=== PATIENT | female | born 2000 | race Caucasian/White ===

== ENCOUNTER 2021-11-26 21:29 | Emergency (ER) | payer BC ==
[2021-11-26] MEDS ORDERED: KETOROLAC 15 MG/ML 1 ML VIAL IVP STA (22:10)
[2021-11-26] MEDS ORDERED: ONDANSETRON 4 MG/2 ML VIAL IVP STA (22:11)
--- NOTE | 2021-11-26 22:13 | ED ---
Abdominal Pain HPI - General Stated Complaint: pain on right side, vomitting Time Seen by Provider: 11/26/21 21:50 - History of Present Illness Initial Comments: This patient is 21-year-old who presents with complaint of right flank pain starting around 8 PM while at rest. Patient also developed associated nausea and vomiting. There has been some urinary frequency though urinating very little. Patient has not noticed any hematuria. No dysuria. No change in bowel movements. MD Complaint: flank pain Onset/Timin -: hour(s) Location: R flank Radiation: RLQ Migration to: no migration Severity: moderate Quality: aching, sharp Consistency: colicky Improves With: nothing Worsens With: nothing Associated Symptoms: vomiting - Related Data Home Medications Medication Instructions Recorded Confirmed Naproxen [Naprosyn] 250 mg PO DIRECTED PRN 01/18/15 01/18/15 Nitrofurantoin Monohyd/M-Cryst 100 mg PO BID 01/18/15 01/18/15 [Macrobid] Previous Rx's Medication Instructions Recorded Ondansetron Odt [Zofran ODT] 4 mg PO Q8HR PRN #10 tab 11/26/21 Tamsulosin [Flomax] 0.4 mg PO DAILY #14 cap 11/26/21 Allergies Allergy/AdvReac Type Severity Reaction Status Date / Time No Known Allergies Allergy Verified 11/26/21 22:16 Review of Systems ROS Statement: Those systems with pertinent positive or pertinent negative responses have been documented in the HPI. ROS Other: All systems not noted in ROS Statement are negative. Constitutional: Denies: fever, chills Respiratory: Denies: cough, dyspnea Cardiovascular: Denies: chest pain, palpitations Gastrointestinal: Reports: abdominal pain, nausea, vomiting. Denies: diarrhea, melena, hematochezia Genitourinary: Reports: frequency. Denies: dysuria, hematuria Musculoskeletal: Denies: back pain Skin: Denies: rash Neurological: Denies: headache, weakness Past Medical History Past Medical History: No Reported History History of Any Multi-Drug Resistant Organisms: None Reported Past Surgical History: No Surgical Hx Reported Past Psychological History: No Psychological Hx Reported Past Alcohol Use History: None Reported Past Drug Use History: None Reported General Exam General appearance: alert, in no apparent distress Head exam: Present: atraumatic, normocephalic Eye exam: Present: normal appearance. Absent: scleral icterus, conjunctival injection Neck exam: Present: normal inspection Respiratory exam: Present: normal lung sounds bilaterally. Absent: respiratory distress, wheezes, rales, rhonchi, stridor Cardiovascular Exam: Present: regular rate, normal rhythm, normal heart sounds. Absent: systolic murmur, diastolic murmur, rubs, gallop GI/Abdominal exam: Present: soft. Absent: distended, tenderness, guarding, rebound, rigid, mass Extremities exam: Present: normal inspection, normal capillary refill. Absent: pedal edema, calf tenderness Back exam: Present: normal inspection. Absent: CVA tenderness (R), CVA tenderness (L) Neurological exam: Present: alert Skin exam: Present: warm, dry, intact, normal color. Absent: rash Course Vital Signs 11/26/21 11/26/21 22:10 23:40 Temperature 98.2 F 98.1 F Pulse Rate 87 75 Respiratory 18 16 Rate Blood Pressure 112/76 108/67 O2 Sat by Pulse 99 100 Oximetry Medical Decision Making - Lab Data Result diagrams: 11/26/21 22:29 11/26/21 22:29 Lab Results 11/26/21 11/26/21 11/26/21 Range/Units 22:29 22:29 22:29 WBC 12.9 H (3.8-10.6) k/uL RBC 5.10 (3.80-5.40) m/uL Hgb 15.4 (11.4-16.0) gm/dL Hct 43.5 (34.0-46.0) % MCV 85.2 (80.0-100.0) fL MCH 30.2 (25.0-35.0) pg MCHC 35.4 (31.0-37.0) g/dL RDW 11.9 (11.5-15.5) % Plt Count 325 (150-450) k/uL MPV 7.5 Neutrophils % 77 % Lymphocytes % 18 % Monocytes % 3 % Eosinophils % 1 % Basophils % 0 % Neutrophils # 9.9 H (1.3-7.7) k/uL Lymphocytes # 2.3 (1.0-4.8) k/uL Monocytes # 0.4 (0-1.0) k/uL Eosinophils # 0.1 (0-0.7) k/uL Basophils # 0.1 (0-0.2) k/uL Sodium (137-145) mmol/L Potassium (3.5-5.1) mmol/L Chloride (98-107) mmol/L Carbon Dioxide (22-30) mmol/L Anion Gap mmol/L BUN (7-17) mg/dL Creatinine (0.52-1.04) mg/dL Est GFR (CKD-EPI)AfAm (>60 ml/min/1.73 sqM) Est GFR (CKD-EPI)NonAf (>60 ml/min/1.73 sqM) Glucose (74-99) mg/dL Calcium (8.4-10.2) mg/dL Total Bilirubin (0.2-1.3) mg/dL AST (14-36) U/L ALT (4-34) U/L Alkaline Phosphatase (38-126) U/L Total Protein (6.3-8.2) g/dL Albumin (3.5-5.0) g/dL Urine Color Yellow Urine Appearance Turbid H (Clear) Urine pH 5.5 (5.0-8.0) Ur Specific Lincoln 1.022 (1.001-1.035) Urine Protein 1+ H (Negative) Urine Glucose (UA) Negative (Negative) Urine Ketones Negative (Negative) Urine Blood Large H (Negative) Urine Nitrite Negative (Negative) Urine Bilirubin Negative (Negative) Urine Urobilinogen <2.0 (<2.0) mg/dL Ur Leukocyte Esterase Moderate H (Negative) Urine RBC 176 H (0-5) /hpf Urine WBC 14 H (0-5) /hpf Ur Squamous Epith Cells 10 H (0-4) /hpf Urine Bacteria Occasional H (None) /hpf Hyaline Casts 1 (0-2) /lpf Urine Mucus Few H (None) /hpf Urine HCG, Qual Not Detected (Not Detectd) 11/26/21 Range/Units 22:29 WBC (3.8-10.6) k/uL RBC (3.80-5.40) m/uL Hgb (11.4-16.0) gm/dL Hct (34.0-46.0) % MCV (80.0-100.0) fL MCH (25.0-35.0) pg MCHC (31.0-37.0) g/dL RDW (11.5-15.5) % Plt Count (150-450) k/uL MPV Neutrophils % % Lymphocytes % % Monocytes % % Eosinophils % % Basophils % % Neutrophils # (1.3-7.7) k/uL Lymphocytes # (1.0-4.8) k/uL Monocytes # (0-1.0) k/uL Eosinophils # (0-0.7) k/uL Basophils # (0-0.2) k/uL Sodium 139 (137-145) mmol/L Potassium 3.6 (3.5-5.1) mmol/L Chloride 103 (98-107) mmol/L Carbon Dioxide 22 (22-30) mmol/L Anion Gap 14 mmol/L BUN 11 (7-17) mg/dL Creatinine 0.75 (0.52-1.04) mg/dL Est GFR (CKD-EPI)AfAm >90 (>60 ml/min/1.73 sqM) Est GFR (CKD-EPI)NonAf >90 (>60 ml/min/1.73 sqM) Glucose 108 H (74-99) mg/dL Calcium 9.4 (8.4-10.2) mg/dL Total Bilirubin 0.3 (0.2-1.3) mg/dL AST 22 (14-36) U/L ALT 17 (4-34) U/L Alkaline Phosphatase 79 (38-126) U/L Total Protein 7.3 (6.3-8.2) g/dL Albumin 4.6 (3.5-5.0) g/dL Urine Color Urine Appearance (Clear) Urine pH (5.0-8.0) Ur Specific Lincoln (1.001-1.035) Urine Protein (Negative) Urine Glucose (UA) (Negative) Urine Ketones (Negative) Urine Blood (Negative) Urine Nitrite (Negative) Urine Bilirubin (Negative) Urine Urobilinogen (<2.0) mg/dL Ur Leukocyte Esterase (Negative) Urine RBC (0-5) /hpf Urine WBC (0-5) /hpf Ur Squamous Epith Cells (0-4) /hpf Urine Bacteria (None) /hpf Hyaline Casts (0-2) /lpf Urine Mucus (None) /hpf Urine HCG, Qual (Not Detectd) Disposition Clinical Impression: Calculus of kidney Disposition: HOME SELF-CARE Condition: Good Instructions (If sedation given, give patient instructions): Kidney Stones (ED) Prescriptions: Tamsulosin [Flomax] 0.4 mg PO DAILY #14 cap Ondansetron Odt [Zofran ODT] 4 mg PO Q8HR PRN #10 tab PRN Reason: Nausea Is patient prescribed a controlled substance at d/c from ED?: No Referrals: None,Stated [REFERRING] - 1-2 days Lawson Hsu MD [STAFF PHYSICIAN] - 1-2 days
[2021-11-26 22:39] LABS: Basophils # (A) 0.1 k/uL (0-0.2); Basophils % (A) 0 %; Eosinophils # (A) 0.1 k/uL (0-0.7); Eosinophils % (A) 1 %; HCT 43.5 % (34.0-46.0); HGB 15.4 gm/dL (11.4-16.0); Lymphocytes # (A) 2.3 k/uL (1.0-4.8); Lymphocytes % (A) 18 %; MCH 30.2 pg (25.0-35.0); MCHC 35.4 g/dL (31.0-37.0); MCV 85.2 fL (80.0-100.0); Mean Platelet Volume 7.5; Monocytes # (A) 0.4 k/uL (0-1.0); Monocytes % (A) 3 %; Neutrophils # (A) 9.9 k/uL (1.3-7.7); Neutrophils % (A) 77 %; Platelet Count 325 k/uL (150-450); RDW 11.9 % (11.5-15.5); WBC 12.9 k/uL (3.8-10.6)
[2021-11-26 22:49] LABS: Appearance,Urine Turbid (Clear); Bacteria,Urine Occasional /hpf; Bilirubin,Urine Negative (Negative); Blood,Urine Large (Negative); Color,Urine Yellow; Glucose,Urine (UA) Negative (Negative); Hyaline Casts,Urine 1 /lpf (0-2); Ketones,Urine Negative (Negative); Leukocyte Esterase,Urine Moderate (Negative); Mucus,Urine Few /hpf; Nitrite,Urine Negative (Negative); PH, Urine 5.5 (5.0-8.0); Protein,Urine 1+ (Negative); RBC,Urine 176 /hpf (0-5); Specific Gravity,Urine 1.022 (1.001-1.035); Squamous Epithelial Cell,Urine 10 /hpf (0-4); Urobilinogen,Urine <2.0 mg/dL (<2.0); WBC,Urine 14 /hpf (0-5)
[2021-11-26 23:20] LABS: ALT 17 U/L (4-34); AST 22 U/L (14-36); African American GFR (CKD) >90 (>60 ml/min/1.73 sqM); Albumin 4.6 g/dL (3.5-5.0); Alkaline Phosphatase 79 U/L (38-126); Anion Gap 14 mmol/L; Blood Urea Nitrogen 11 mg/dL (7-17); Calcium 9.4 mg/dL (8.4-10.2); Carbon Dioxide 22 mmol/L (22-30); Chloride 103 mmol/L (98-107); Glucose 108 mg/dL (74-99); Non-African American GFR(CKD) >90 (>60 ml/min/1.73 sqM); Potassium 3.6 mmol/L (3.5-5.1); Sodium 139 mmol/L (137-145); Total Bilirubin 0.3 mg/dL (0.2-1.3); Total Protein 7.3 g/dL (6.3-8.2)
--- NOTE | 2021-11-26 23:24 | US ---
EXAMINATION TYPE: US kidneys/renal and bladder DATE OF EXAM: 11/26/2021 COMPARISON: NONE CLINICAL HISTORY: suspect R kidney stone. Right flank pain and vomiting today EXAM MEASUREMENTS: Right Kidney: 10.8 x 4.1 x 4.2 cm Left Kidney: 10.2 x 4.3 x 5.6 cm Right Kidney: Mild hydronephrosis visualized. Echogenic foci with twinkle artifact seen in mid pole m easuring 0.5 x 0.6 x 0.4cm Left Kidney: No hydronephrosis or masses seen Bladder: Bladder empty Bilateral Jets seen: No IMPRESSION: There is right-sided hydronephrosis. There is likely calculus in the interpolar right kidney. Left ki dney appears normal with no sign of obstruction. No evidence of a renal mass. Urinary bladder was emp ty during the exam.
[2021-11-26] MEDS ORDERED: TAMSULOSIN 0.4 MG CAP.ER.24H PO STA (23:35)
[2021-11-26 23:42] VITALS: BP 108/67; PULSE 75; RESP 16; TEMP 98.1
== END 2021-11-27 | disposition home or self-care (01) ==
LOC: EC 21:29
DX: N20.0 Calculus of kidney (principal)
CPT/HCPCS: 36415; 80053; 85025; 81001; 81025; 76770; 96374; 96375; 99284; J2405; J1885

== ENCOUNTER 2021-12-31 06:19 | Day surgery (SDC) | payer BC ==
[2021-12-26 14:51] VITALS: BMI 29.2
[~2021-12-31 06:19] MED LIST: DEXAMETHASONE SOD PHOSPHATE 4 MG/ML 1 ML VIAL IV ONE; DEXAMETHASONE SOD PHOSPHATE 4 MG/ML 1 ML VIAL IV PRN; FAMOTIDINE 20 MG/2 ML VIAL IV PRN; LACTATED RINGERS 1,000 ML IV SCH; LIDOCAINE 1% (10MG/ML) FOR IV START INTRADERMA PRN; ONDANSETRON 4 MG/2 ML VIAL IVP ONE; ONDANSETRON 4 MG/2 ML VIAL IVP PRN
[2021-12-31] MEDS ORDERED: HYDROmorphone 0.5 MG/0.5 ML SYRINGE IVP PRN (07:00)
[2021-12-31 07:12] VITALS: RESP 16
[2021-12-31] MEDS ORDERED: MIDAZOLAM 2 MG/2 ML VIAL ONE (07:20)
[2021-12-31] MEDS ORDERED: fentaNYL (PF) 50 MCG/ML 2 ML AMP ONE (07:20)
[2021-12-31] MEDS ORDERED: SUCCINYLCHOLINE CHLORIDE 200 MG/10 ML VIAL IV ONE (07:20)
[2021-12-31] MEDS ORDERED: LIDOCAINE 4% LTA KIT (4 ML) TOPICAL ONE (07:20)
[2021-12-31] MEDS ORDERED: PROPOFOL 10 MG/ML 20 ML VIAL IV ONE (07:20)
[2021-12-31] MEDS ORDERED: LIDOCAINE 2% INJ 20 MG/ML (2 ML VIAL) ONE (07:20)
[2021-12-31] MEDS ORDERED: LACTATED RINGERS 1,000 ML IV ONE (08:18)
--- NOTE | 2021-12-31 08:20 | P.OP ---
Date of Procedure: 12/31/21 Preoperative Diagnosis: Chronic tonsillitis Chronic cryptic tonsillitis Postoperative Diagnosis: Same Procedure(s) Performed: Adenotonsillectomy Anesthesia: ELIASA Surgeon: Saad Jacobo Estimated Blood Loss (ml): 2 Pathology: other (Tonsils) Condition: stable Disposition: PACU Indications for Procedure: This 21-year-old white female whose had difficulties with chronic and recurrent tonsillitis as well as cryptic tonsillitis with recurrent tonsilloliths Operative Findings: Mild adenoid hypertrophy, tonsils +3 with tonsillar cryptitis and debris in the tonsil crypts no exudate Description of Procedure: PROCEDURE: The patient was brought into the operative suite and placed in the supine position. The patient underwent induction of general anesthesia with oral endotracheal intubation without difficulty. The table was turned 90 degrees and the patient was positioned with a shoulder roll and head donut. The patient was prepped and draped in the usual aseptic fashion. The McIvor mouth gag was placed. The soft palate was palpated. No submucous cleft was noted. Red rubber Jhaveri catheters were placed through both nasal cavities and pulled through the oropharynx for soft palate retraction. The nasopharynx was examined with a mirror examine and the adenoids were vaporized/cauterized with suction cautery. This ablated the adenoids and there was good hemostasis noted. The red rubber Jhaveri catheters were removed. The left tonsil was then grasped with a curved Allis clamp and dissected from the tonsillar fossa in a superior to inferior direction using both blunt and electrocautery dissection until the tonsils was removed. Once the tonsils were removed, hemostasis was gained with suction cautery. Attention was then turned to the right where the right tonsil was removed exactly as the left had been. Once hemostasis was obtained and remained good in both tonsillar fossa as well as the nasopharynx, the patient was suctioned in an orogastric fashion and the McIvor mouth gag was removed. The patient was then allowed to emerge from general anesthesia, having tolerated the procedure well. The patient was extubated in the operative suite and transferred to the postoperative recovery area in satisfactory condition.
[2021-12-31] MEDS: MEPERIDINE 50 MG/ML SYRINGE IVP ONE ×2 (08:39→08:52)
[2021-12-31 09:02] VITALS: TEMP 97.4
[2021-12-31] MEDS ORDERED: HYDROcodone/APAP 5-325MG 1 EACH TAB ONE (09:44)
[2021-12-31] MEDS ORDERED: HYDROcodone/APAP 5-325MG 1 EACH TAB PO ONE (09:47)
[2021-12-31 11:12] VITALS: BP 126/77; PULSE 96
== END 2021-12-31 11:38 | disposition home or self-care (01) ==
LOC: OR 06:19
PROVIDERS: ATTEND Otolaryngology
DX: J35.3 Hypertrophy of tonsils with hypertrophy of adenoids (principal); J03.90 Acute tonsillitis, unspecified
CPT/HCPCS: 42821; 81025; 88304; J2250; J0330; J1100; J2175; J0690; J2405; J3010; J2704; J2001